=== PATIENT | male | born 1975 | race Caucasian/White ===

== ENCOUNTER 2018-03-21 17:29 | Emergency (ER) | payer OTHER ==
[2018-03-21 17:38] VITALS: BP 126/81; PULSE 78; RESP 16; TEMP 98.4
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
--- NOTE | 2018-03-21 18:27 | XR ---
EXAMINATION TYPE: XR finger RT DATE OF EXAM: 03/21/2018 COMPARISON: NONE HISTORY: Finger injury and pain TECHNIQUE: 4 views FINDINGS: There is 3 mm chip fracture of the posterior base of the distal phalanx of the index finger right hand. There is slight flexion deformity. There is no dislocation. IMPRESSION: Intra-articular chip fracture as above.
== END 2018-03-21 18:31 | disposition home or self-care (01) ==
LOC: EC 17:29
DX: S62.630A Displaced fracture of distal phalanx of right index finger, initial encounter for closed fracture (principal); F17.200 Nicotine dependence, unspecified, uncomplicated; W23.1XXA Caught, crushed, jammed, or pinched between stationary objects, initial encounter; Y93.39 Activity, other involving climbing, rappelling and jumping off; Y92.69 Other specified industrial and construction area as the place of occurrence of the external cause; Y99.0 Civilian activity done for income or pay
CPT/HCPCS: 99283

== ENCOUNTER 2022-03-03 11:43 | Emergency (ER) | payer OTHER ==
[2022-03-03 11:54] VITALS: BP 128/80; PULSE 65; RESP 16
[2022-03-03] MEDS ORDERED: IBUPROFEN 600 MG TAB PO STA (12:51)
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
--- NOTE | 2022-03-03 13:20 | XR ---
EXAMINATION TYPE: XR toes RT DATE OF EXAM: 03/03/2022 COMPARISON: None HISTORY: Injury to fifth digit TECHNIQUE: 3 views distal right foot digits FINDINGS: No acute fracture or dislocation is evident. Joint spaces are preserved. Distal interphalan geal joint space is limited on that digit and may be fused. No acute fractures are evident. Follow up exams can be performed 710 days from acute trauma for continued pain. IMPRESSION: 1. No acute fracture fifth digit right foot
== END 2022-03-03 13:56 | disposition home or self-care (01) ==
LOC: EC 11:43
DX: S93.504A Unspecified sprain of right lesser toe(s), initial encounter (principal); Z72.89 Other problems related to lifestyle
CPT/HCPCS: 99283

== ENCOUNTER → 2022-03-15 | Outpatient (CLI) | payer OTHER ==
--- NOTE | 2022-03-15 13:26 | XR ---
EXAMINATION TYPE: XR foot complete RT DATE OF EXAM: 03/15/2022 CLINICAL HISTORY: pain TECHNIQUE: Frontal, lateral and oblique images of the right foot are obtained. COMPARISON: None. FINDINGS: There is no acute fracture/dislocation evident. The joint spaces appear within normal ferguson its. The overlying soft tissue appears unremarkable. IMPRESSION: There is no acute fracture or dislocation. ICD 10 NO FRACTURE, INITIAL EVALUATION
== END | disposition home or self-care (01) ==
LOC: RADXRMAIN 12:56
PROVIDERS: ATTEND Emergency Medicine
DX: S93.504 Unspecified sprain of right lesser toe(s) (principal); X58.XXXD Exposure to other specified factors, subsequent encounter

== ENCOUNTER → 2024-11-28 | Outpatient (CLI) | payer OTHER ==
--- NOTE | 2024-11-28 14:29 | XR ---
EXAMINATION TYPE: XR lumbar spine 2 or 3V DATE OF EXAM: 11/28/2024 CLINICAL HISTORY: pain TECHNIQUE: Three views of the lumbar spine are submitted. COMPARISON: CT abdomen and pelvis 04/30/2010 FINDINGS: There are 5 lumbar type vertebral bodies identified. The lumbar spine shows satisfactory alignment w ithout evidence of acute fracture or dislocation. Vertebral body heights are within normal limits. Disc spaces are within normal limits. The overlying soft tissue appears unremarkable. Atheroscleroti c calcification of the aorta. 7 mm calculus in the region of the left kidney. IMPRESSION: 1. No acute fracture or dislocation is seen in the lumbar spine. 2. Calculus within the region of the left kidney. [facility], , 11/28/2024 2:27 PM
== END | disposition home or self-care (01) ==
LOC: RADXRMAIN 14:03
PROVIDERS: ATTEND Emergency Medicine
DX: S39.012A Strain of muscle, fascia and tendon of lower back, initial encounter (principal); N20.0 Calculus of kidney
CPT/HCPCS: 72100

== ENCOUNTER → 2024-12-05 | Outpatient (CLI) | payer BC ==
--- NOTE | 2024-12-05 13:40 | US ---
EXAMINATION TYPE: US kidneys/renal and bladder DATE OF EXAM: 12/05/2024 COMPARISON: 11/28/24 CLINICAL INDICATION: Male, 49 years old with history of N20.0 CALCULUS OF KIDNEY; left calc on lumbar x-ray TECHNIQUE: Grayscale imaging of the bilateral kidneys and urinary bladder: FINDINGS: EXAM MEASUREMENTS: Right Kidney: 12.3x6.7x6.1 cm Left Kidney: 12.2x6.7x5.3 cm Right Kidney: No hydronephrosis or masses seen right renal cyst measuring up to 6.7 cm. Left Kidney: 0.8cm focus at the inferior pole Bladder: wnl Bilateral Jets seen: Yes There is no evidence for hydronephrosis at this point in time. . No masses are identified. The urin jared bladder is anechoic. exam limited by bowel gas and body habitus IMPRESSION: 1. No evidence for obstructive uropathy. 2. Nonobstructing left renal calculi. 3. Right renal cortical cyst. [facility], , 12/05/2024 1:37 PM
== END | disposition home or self-care (01) ==
LOC: RADUSWWP 12:47
PROVIDERS: ATTEND Internal Medicine Geriatric Medicine
DX: N20.0 Calculus of kidney (principal); N28.1 Cyst of kidney, acquired
CPT/HCPCS: 76770

== ENCOUNTER → 2024-12-24 | Outpatient (CLI) | payer BC ==
[2024-12-24 10:42] LABS: Basophils # (A) 0.04 X 10*3/uL (0.00-0.10); Basophils % (A) 0.5 %; Eosinophils # (A) 0.18 X 10*3/uL (0.04-0.35); Eosinophils % (A) 2.1 %; Lymphocytes # (A) 3.04 X 10*3/uL (0.90-5.00); MCH 31.3 pg (27.0-32.0); MCHC 33.3 g/dL (32.0-37.0); MCV 93.8 FL (80.0-97.0); Monocytes # (A) 0.96 X 10*3/uL (0.20-1.00); Monocytes % (A) 11.1 %; NRBC Per 100 WBC 0 X 10*3/uL (0.00-0.01); Neutrophils # (A) 4.43 X 10*3/uL (1.80-7.70); Platelet Count 156 X 10*3/uL (140-440); RDW 12.2 % (11.5-14.5); WBC 8.68 X 10*3/uL (4.50-10.00)
[2024-12-24 11:00] LABS: Carbon Dioxide 25.2 mmol/L (21.6-31.8); Chloride 104 mmol/L (96-109); Potassium 4.6 mmol/L (3.5-5.5); Sodium 139 mmol/L (135-145)
[2024-12-24 15:39] LABS: Appearance,Urine Clear (Clear); Bilirubin,Urine Negative (Negative); Blood,Urine Negative (Negative); Color,Urine Yellow (Yellow); Ketones,Urine Negative (Negative); Nitrite,Urine Negative (Negative); Urobilinogen,Urine 0.2 E.U./DL
== END | disposition home or self-care (01) ==
LOC: LABPAT 08:17
PROVIDERS: ATTEND Urology
DX: N20.0 Calculus of kidney (principal)
CPT/HCPCS: 80051; 81003; 82565; 85025; 87086

== ENCOUNTER → 2025-01-02 | Outpatient (CLI) | payer BC ==
--- NOTE | 2025-01-02 09:07 | XR ---
EXAMINATION TYPE: XR KUB DATE OF EXAM: 01/02/2025 8:59 AM COMPARISON: 04/30/2010. CLINICAL INDICATION: Male, 49 years old with history of N20.0 CALCULUS OF KIDNEY; TECHNIQUE: One radiographic view of the abdomen was obtained. FINDINGS: The bowel gas pattern is nonspecific without dilated loops of small or large bowel. . Fecal material and gas are demonstrated throughout the colon and rectum. There is no evidence for organome connor or pneumoperitoneum. No acute osseous process. Left renal calculi measuring up to 8 mm. IMPRESSION: Nonspecific bowel gas pattern without radiographic evidence for acute process. [facility], , 01/02/2025 9:05 AM
== END | disposition home or self-care (01) ==
LOC: RADXRMAIN 08:37
PROVIDERS: ATTEND Urology
DX: N20.0 Calculus of kidney (principal)
CPT/HCPCS: 74018

== ENCOUNTER → 2025-01-14 | Outpatient (CLI) | payer OTHER ==
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
== END | disposition home or self-care (01) ==
LOC: RADMRIMAIN 13:23
PROVIDERS: ATTEND Emergency Medicine
DX: S39.012D Strain of muscle, fascia and tendon of lower back, subsequent encounter (principal)
CPT/HCPCS: 72148

== ENCOUNTER 2025-01-20 07:55 | Day surgery (SDC) | payer BC ==
[2025-01-15 12:41] VITALS: BMI 33.0
[2025-01-20] MEDS ORDERED: fentaNYL (PF) 50 MCG/ML 2 ML AMP IVP PRN (08:21)
[2025-01-20] MEDS ORDERED: LIDOCAINE 1% (10MG/ML) FOR IV START INTRADERMA PRN (08:21)
[2025-01-20] MEDS ORDERED: LACTATED RINGERS 1,000 ML IV SCH (08:21)
--- NOTE | 2025-01-20 08:36 | P.HPIHPCON ---
History of Present Illness H&P Date: 01/20/25 Chief Complaint: Left renal stone This is a 49-year-old male with a history of an 8 mm left-sided lower pole stone, status post ESWL on December 29, follow-up KUB showed persistent stone. He continues to have left flank pain. Discussed with him the option of left-sided ureteroscopy and holmium laser given the ESWL failure. Discussed the risk which include but not limited to bleeding, infection, injury to the ureter. Discussed potential persistent left flank pain even with stone removal Consent for Procedure: I have explained the operation/procedure to the patient, including the risks, benefits, side effects, alternative therapies (including not receiving the proposed treatment or service), the likelihood of the patient achieving his/her goals, and potential recuperation problems for the procedure/sedation/analgesia, as well as any blood products, if indicated. I also explained to the patient the risks, benefits and side effects of the alternatives, as well as the risks related to not receiving the proposed procedure, care, treatment, or services. Past Medical History Past Medical History: No Reported History Additional Past Medical History / Comment(s): KIDNEY STONES History of Any Multi-Drug Resistant Organisms: None Reported Past Surgical History: No Surgical Hx Reported Additional Past Surgical History / Comment(s): LITHOTRIPSY, COLONOSCOPY/EGD Past Anesthesia/Blood Transfusion Reactions: No Reported Reaction Smoking Status: Former smoker - Past Family History Mother Family Medical History: No Reported History Medications and Allergies Home Medications Medication Instructions Recorded Confirmed Type No Known Home Medications 01/15/25 01/20/25 History Allergies Allergy/AdvReac Type Severity Reaction Status Date / Time No Known Allergies Allergy Verified 01/20/25 08:27 Surgical - Exam - General no distress, moderate pain - Eyes normal ocular movement, no pale - ENT normal nares, normal mucosa - Respiratory normal expansion, normal respiratory effort - Abdomen Abdomen: soft, non tender Assessment and Plan Assessment: OR for left-sided ureteroscopy, hemiaplasia lithotripsy, stone basketing stent insertion
[2025-01-20] MEDS: IV FLUID CONTINUATION 1,000 ML IV ONE (08:41)
[2025-01-20] MEDS: DEXAMETHASONE SOD PHOSPHATE 4 MG/ML 1 ML VIAL IV ONE (08:42)
[2025-01-20] MEDS: ONDANSETRON 4 MG/2 ML VIAL IVP ONE (08:42)
--- NOTE | 2025-01-20 09:06 | XR ---
EXAMINATION TYPE: XR KUB DATE OF EXAM: 01/20/2025 8:47 AM COMPARISON: 01/02/2025 CLINICAL INDICATION: Male, 49 years old with history of N20.0 kidney stone; PHH, pain. Presurgical fo r stone TECHNIQUE: One radiographic view of the abdomen was obtained. FINDINGS: Nonobstructive bowel gas pattern. Scattered mild stool. There is an 8 mm calcification left mid abdomen. This remains unchanged. Tiny phlebolith in left side of the pelvis. IMPRESSION: Unchanged 8 mm left renal stone. [facility], Workstation: [facility], 01/20/2025 9:04 AM
[2025-01-20] MEDS ORDERED: fentaNYL (PF) 50 MCG/ML 2 ML AMP ONE (09:25)
[2025-01-20] MEDS ORDERED: MIDAZOLAM 2 MG/2 ML VIAL ONE (09:25)
[2025-01-20] MEDS ORDERED: PROPOFOL 10 MG/ML 20 ML VIAL IV ONE (09:25)
[2025-01-20] MEDS ORDERED: LIDOCAINE 1% INJ 10MG/ML (20 ML MDV) ONE (09:25)
[2025-01-20] MEDS: ceFAZolin 2 GM in DEXTROSE 5% IN WATER 50 ML IVPB PRN (09:29)
[2025-01-20 10:19] VITALS: TEMP 97.5
--- NOTE | 2025-01-20 10:21 | P.OP ---
Date of Procedure: 01/20/25 Preoperative Diagnosis: Left renal stone Postoperative Diagnosis: Same Procedure(s) Performed: Cystoscopy, left ureteroscopy, holmium laser lithotripsy, stone basketing and stent insertion Implants: 6 Czech by 26 cm stent left on a string in the left ureter Anesthesia: SAUL Surgeon: Samuel Ku Estimated Blood Loss (ml): 1 Pathology: none sent Condition: stable Disposition: PACU Indications for Procedure: This is a 49-year-old male with a history of an 8 mm left-sided lower pole stone, status post ESWL on December 29, follow-up KUB showed persistent stone. He continues to have left flank pain. Discussed with him the option of left-sided ureteroscopy and holmium laser given the ESWL failure. Discussed the risk which include but not limited to bleeding, infection, injury to the ureter. Discussed potential persistent left flank pain even with stone removal Operative Findings: Left-sided lower pole stone completely fragmented Description of Procedure: Patient brought the operating room, general anesthesia was induced. Was prepped and draped in sterile fashion placed in a dorsolithotomy position. Cystoscopy with a 21 Czech sheath was inserted per urethra, cystoscopy was performed sh owed no abnormality within the bladder. The prostate was mildly enlarged but nonocclusive. The left ureteral orifice was visualized and intubated with a sensor wire, the wire was advanced under fluoroscopy into the kidney. A radiopaque stone was seen in the left lower pole. Next an 1113 Czech access sheath was passed over the wire into the proximal ureter. The flexible ureteroscope was inserted through the access sheath, renoscopy was performed which showed a large stone in the lower pole. Using the stone basket the stone was repositioned into the upper pole. Using the holmium laser the stone was fragmented, stone fragments were removed using a stone basket. Repeat renoscopy showed no sizable fragments or injury to the kidney, on fluoroscopy there is no radiopaque density seen. Pullback ureteroscopy was performed showed no injury to the ureter or any ureteral stones, as ureteroscope was withdrawn a sensor wire was advanced through. Next a ureteral stent was passed over the wire, the proximal curl visualized on fluoroscopy and the distal curl was visualized using the cystoscope. The bladder was emptied at the end of the case. Patient tolerated procedure was taken to recovery in stable condition. The stent was left on a string and taped to the patient penis
--- NOTE | 2025-01-20 10:29 | FL ---
EXAMINATION TYPE: FL guidance operating room DATE OF EXAM: 01/20/2025 FLUOROSCOPY LEFT SIDED STONE WITH DR. LINDSEY 5.1 SEC .[id number] DAP LC/ARM Total images 2 are submitted. [facility], , 01/20/2025 10:27 AM
[2025-01-20] MEDS: KETOROLAC 15 MG/ML 1 ML VIAL IVP STA (11:17)
[2025-01-20] MEDS: HYDROmorphone 0.5 MG/0.5 ML SYRINGE IVP PRN (11:40)
[2025-01-20 12:50] VITALS: BP 122/69; PULSE 60; RESP 18
== END 2025-01-20 13:23 | disposition home or self-care (01) ==
LOC: OR 07:55
PROVIDERS: ATTEND Urology
DX: N20.0 Calculus of kidney (principal); Z87.891 Personal history of nicotine dependence
CPT/HCPCS: 82365; 74018; 52356; C1758; J2250; J1100; J0690; J2405; J2003; J3010; J1885; J2704; J1171